=== PATIENT | female | born 1975 | race Caucasian/White ===

== ENCOUNTER 2021-12-13 09:19 | Inpatient (IN) ==
[2021-12-13] MEDS ORDERED: CeFAZolin Syr 2,000MG/20 ML 2,000 MG/20 ML SYRINGE IVPB ONE (09:40)
[2021-12-13] MEDS ORDERED: Ringers Solution, Lactated 1,000 ML IVC SCH (09:45)
[2021-12-13] MEDS ORDERED: *HR* OxyCODONE Immed Rel 5 MG TABLET PO PRN (10:16)
[2021-12-13] MEDS ORDERED: *HR* HYDROmorphone PF 0.5 MG/0.5 ML SYRINGE IVP PRN (10:16)
[2021-12-13] MEDS ORDERED: Ondansetron 4 MG/2 ML VIAL IVP PRN ×2 (10:16→15:28)
[2021-12-13] MEDS ORDERED: Sugammadex Sodium 200 MG/2 ML VIAL IV ONE (10:46)
[2021-12-13] MEDS ORDERED: *HR* Midazolam HCl 2 MG/2 ML VIAL ONE (10:51)
[2021-12-13] MEDS ORDERED: *HR* Propofol 200 MG/20 ML VIAL IVP ONE (10:51)
[2021-12-13] MEDS ORDERED: *HR* Succinylcholine 200 MG/10 ML VIAL IVP ONE (10:51)
[2021-12-13] MEDS ORDERED: Lidocaine -MPF 2% 2 ML VIAL ONE (10:51)
[2021-12-13] MEDS ORDERED: *HR* FentaNYL (PF) 100 MCG/2 ML VIAL ONE (10:51)
[2021-12-13] MEDS ORDERED: *HR* Rocuronium Bromide 50 MG/5 ML VIAL ONE ×3 (10:51→12:50)
[2021-12-13] MEDS ORDERED: Lidocaine HCL 4 ML Topical Solution (Laryng-O-Jet Kit Sterile Pak) TP ONE (10:55)
[2021-12-13] MEDS ORDERED: Ketamine HCL *QUVA* 50mg (1mL) SYRINGE ONE (11:00)
[2021-12-13] MEDS ORDERED: Ketorolac 30 MG/ML VIAL ONE (11:00)
[2021-12-13] MEDS ORDERED: EPHEDrine 50 MG/ML VIAL ONE (11:52)
[2021-12-13] MEDS ORDERED: Ondansetron 4 MG/2 ML VIAL ONE (11:59)
[2021-12-13] MEDS ORDERED: Acetaminophen IV 1,000 MG/100 ML BAG IVPB ONE ×2 (12:02→12:03)
[2021-12-13] MEDS ORDERED: *HR* HYDROMORPHONE 2 MG/ML VIAL ONE (12:50)
[2021-12-13] MEDS ORDERED: Naloxone 0.4 MG/ML INJ IVP PRN (15:28)
[2021-12-13] MEDS: *HR* Heparin 5,000 UNIT/ML VIAL SQ SCH ×2 (16:52→22:13)
[2021-12-13] MEDS: 0.9 % Sodium Chloride 1,000 ML IVC SCH (17:11)
[2021-12-13] MEDS: Gabapentin 300 MG CAPSULE PO SCH ×2 (17:11→22:13)
[2021-12-13] MEDS: Ipratropium/Albuterol Neb 3 ML IH SCH ×3 (17:58→23:10)
[2021-12-13] MEDS: Sennosides/Docusate Sodium TABLET PO SCH (19:57)
[2021-12-13] MEDS: Famotidine 20 MG TABLET PO SCH (19:57)
[2021-12-13] MEDS: *HR* HYDROcodone/Acet 5/325 mg TABLET PO PRN (19:58)
[2021-12-14] MEDS: *HR* HYDROcodone/Acet 5/325 mg TABLET PO PRN ×3 (00:36→14:49)
[2021-12-14] MEDS: Ipratropium/Albuterol Neb 3 ML IH SCH ×6 (03:56→23:55)
[2021-12-14 04:27] LABS: Hemoglobin 12.8 g/dL (11.5-15.4); Mean Corpuscular HGB Conc 34.6 g/dL (31.6-35.5); Mean Corpuscular Hemoglobin 33.5 pg (28.0-33.3); Mean Corpuscular Volume 96.9 fL (83.0-100.0); Mean Platelet Volume 10.1 fL (9.4-12.4); Platelet Count 199 K/mcL (140-400); Red Blood Count 3.82 M/mcL (3.82-4.97); Red Cell Distribution Width 12.6 % (11.5-14.5)
[2021-12-14 04:31] LABS: White Blood Count 12.6 K/mcL (4.3-11.1)
[2021-12-14 04:45] LABS: BUN/Creatinine Ratio 19 (6-26); Blood Urea Nitrogen 7 mg/dL (6-20); Calcium 6.8 mg/dL (8.6-10.3); Carbon Dioxide 20 mEq/L (23-29); Chloride 113 mEq/L (98-107); Glucose 102 mg/dL (70-105); Magnesium 1.5 mg/dL (1.6-2.6); Osmolality,Calculated 290 (280-300); Potassium 3.1 mEq/L (3.5-5.1); Sodium 141 mEq/L (136-145); eGFR For African Americans > 60 (> 60); eGFR For Non-African Americans > 60 (> 60)
[2021-12-14] MEDS: *HR* Heparin 5,000 UNIT/ML VIAL SQ SCH ×3 (05:53→21:15)
[2021-12-14] MEDS: 0.9 % Sodium Chloride 1,000 ML IVC SCH (05:53)
[2021-12-14] MEDS: Gabapentin 300 MG CAPSULE PO SCH ×3 (08:53→21:15)
[2021-12-14] MEDS: Famotidine 20 MG TABLET PO SCH ×2 (08:53→21:14)
[2021-12-14] MEDS: Sennosides/Docusate Sodium TABLET PO SCH ×2 (08:53→21:15)
[2021-12-14] MEDS: Ketorolac 30 MG/ML VIAL IVP SCH (18:34)
[2021-12-15] MEDS: Ketorolac 30 MG/ML VIAL IVP SCH ×5 (01:27→23:54)
[2021-12-15 03:33] LABS: Hematocrit 34.6 % (35.3-44.9); Hemoglobin 11.4 g/dL (11.5-15.4); Mean Corpuscular HGB Conc 32.9 g/dL (31.6-35.5); Mean Corpuscular Volume 100.3 fL (83.0-100.0); Mean Platelet Volume 10.1 fL (9.4-12.4); Platelet Count 170 K/mcL (140-400); Red Blood Count 3.45 M/mcL (3.82-4.97); Red Cell Distribution Width 12.8 % (11.5-14.5); White Blood Count 11.9 K/mcL (4.3-11.1)
[2021-12-15 03:58] LABS: BUN/Creatinine Ratio 21 (6-26); Blood Urea Nitrogen 12 mg/dL (6-20); Calcium 8.5 mg/dL (8.6-10.3); Carbon Dioxide 26 mEq/L (23-29); Chloride 107 mEq/L (98-107); Glucose 109 mg/dL (70-105); Magnesium 2.2 mg/dL (1.6-2.6); Osmolality,Calculated 288 (280-300); Phosphorous 3.1 mg/dL (2.7-4.5); Potassium 4.3 mEq/L (3.5-5.1); Sodium 139 mEq/L (136-145); eGFR For African Americans > 60 (> 60); eGFR For Non-African Americans > 60 (> 60)
[2021-12-15] MEDS: Ipratropium/Albuterol Neb 3 ML IH SCH ×6 (04:07→23:46)
[2021-12-15] MEDS: *HR* Heparin 5,000 UNIT/ML VIAL SQ SCH ×3 (05:06→21:05)
[2021-12-15] MEDS: Gabapentin 300 MG CAPSULE PO SCH ×3 (08:26→21:05)
[2021-12-15] MEDS: Sennosides/Docusate Sodium TABLET PO SCH ×2 (08:26→21:05)
[2021-12-15] MEDS: Famotidine 20 MG TABLET PO SCH ×2 (08:27→21:05)
[2021-12-16] MEDS: Ipratropium/Albuterol Neb 3 ML IH SCH ×6 (03:38→23:38)
[2021-12-16] MEDS: *HR* Heparin 5,000 UNIT/ML VIAL SQ SCH ×3 (05:07→20:57)
[2021-12-16] MEDS: Ketorolac 30 MG/ML VIAL IVP SCH ×3 (05:07→17:44)
[2021-12-16 07:40] LABS: Hematocrit 32.9 % (35.3-44.9); Hemoglobin 10.8 g/dL (11.5-15.4); Mean Corpuscular HGB Conc 32.8 g/dL (31.6-35.5); Mean Corpuscular Hemoglobin 32.9 pg (28.0-33.3); Mean Corpuscular Volume 100.3 fL (83.0-100.0); Mean Platelet Volume 10.2 fL (9.4-12.4); Platelet Count 186 K/mcL (140-400); Red Blood Count 3.28 M/mcL (3.82-4.97); Red Cell Distribution Width 12.9 % (11.5-14.5); White Blood Count 7.8 K/mcL (4.3-11.1)
[2021-12-16] MEDS: Sennosides/Docusate Sodium TABLET PO SCH ×2 (08:01→20:57)
[2021-12-16] MEDS: Famotidine 20 MG TABLET PO SCH ×2 (08:01→20:57)
[2021-12-16] MEDS: Gabapentin 300 MG CAPSULE PO SCH ×3 (08:01→20:57)
[2021-12-16 08:02] LABS: BUN/Creatinine Ratio 20 (6-26); Blood Urea Nitrogen 11 mg/dL (6-20); Calcium 8.5 mg/dL (8.6-10.3); Carbon Dioxide 25 mEq/L (23-29); Chloride 105 mEq/L (98-107); Glucose 137 mg/dL (70-105); Magnesium 1.8 mg/dL (1.6-2.6); Osmolality,Calculated 288 (280-300); Potassium 3.7 mEq/L (3.5-5.1); Sodium 138 mEq/L (136-145); eGFR For African Americans > 60 (> 60); eGFR For Non-African Americans > 60 (> 60)
[2021-12-17] MEDS: Ketorolac 30 MG/ML VIAL IVP SCH ×4 (00:14→17:12)
[2021-12-17] MEDS: Ipratropium/Albuterol Neb 3 ML IH SCH ×6 (03:38→23:38)
[2021-12-17] MEDS: *HR* Heparin 5,000 UNIT/ML VIAL SQ SCH ×3 (05:54→20:40)
[2021-12-17 06:25] LABS: Hematocrit 33.4 % (35.3-44.9); Mean Corpuscular HGB Conc 32.9 g/dL (31.6-35.5); Mean Corpuscular Hemoglobin 32.8 pg (28.0-33.3); Mean Corpuscular Volume 99.7 fL (83.0-100.0); Mean Platelet Volume 10.2 fL (9.4-12.4); Platelet Count 202 K/mcL (140-400); Red Blood Count 3.35 M/mcL (3.82-4.97); Red Cell Distribution Width 12.7 % (11.5-14.5); White Blood Count 7.1 K/mcL (4.3-11.1)
[2021-12-17 06:44] LABS: BUN/Creatinine Ratio 21 (6-26); Blood Urea Nitrogen 14 mg/dL (6-20); Calcium 8.8 mg/dL (8.6-10.3); Carbon Dioxide 26 mEq/L (23-29); Chloride 107 mEq/L (98-107); Glucose 129 mg/dL (70-105); Magnesium 1.8 mg/dL (1.6-2.6); Osmolality,Calculated 292 (280-300); Potassium 3.8 mEq/L (3.5-5.1); Sodium 140 mEq/L (136-145); eGFR For African Americans > 60 (> 60); eGFR For Non-African Americans > 60 (> 60)
[2021-12-17] MEDS: Famotidine 20 MG TABLET PO SCH ×2 (07:24→20:39)
[2021-12-17] MEDS: Gabapentin 300 MG CAPSULE PO SCH ×3 (07:24→20:39)
[2021-12-17] MEDS: Sennosides/Docusate Sodium TABLET PO SCH ×2 (07:26→20:40)
[2021-12-18] MEDS: Ipratropium/Albuterol Neb 3 ML IH SCH ×3 (05:10→11:34)
[2021-12-18] MEDS: *HR* HYDROcodone/Acet 5/325 mg TABLET PO PRN (07:32)
[2021-12-18] MEDS: *HR* Heparin 5,000 UNIT/ML VIAL SQ SCH (07:33)
[2021-12-18] MEDS: Famotidine 20 MG TABLET PO SCH (07:33)
[2021-12-18] MEDS: Gabapentin 300 MG CAPSULE PO SCH (07:33)
[2021-12-18] MEDS: Sennosides/Docusate Sodium TABLET PO SCH (07:33)
[2021-12-18 11:33] VITALS: BP 153/84; PULSE 94; TEMP 98.2
[2021-12-18 11:37] VITALS: O2SAT 99
== END 2021-12-18 12:55 | disposition home or self-care (01) | DRG 164 ==
LOC: SAMDAY 09:19 → 2NNU 16:05
PROVIDERS: ADMIT Thoracic Surgery (Cardiothoracic Vascular Surgery); ATTEND Thoracic Surgery (Cardiothoracic Vascular Surgery)